=== PATIENT | female | born 1945 | race Two or more races ===

== ENCOUNTER 2024-06-17 11:03 | Inpatient (IN) | payer OTHER ==
[~2024-06-17] VITALS: Ht 160 cm; Wt 82.8 kg
[2024-06-17 11:44] LABS: Hemoglobin 7.7 g/dL (12.2-16.2)
[2024-06-17 11:46] LABS: Hematocrit 26.4 % (36.0-46.0); Mean Corpuscular Hemoglobin 19.3 pg (28.0-32.0); Mean Corpuscular Hgb Conc. 29.2 g/dL (32.0-36.0); Mean Corpuscular Volume 66.2 fL (80.0-100.0); Platelet Count (auto) 400 10^3/uL (140-450); Red Blood Cells 3.99 10^6/uL (4.0-5.20)
[2024-06-17 11:48] LABS: Red Cell Distribution Width 20.3 % (11.8-14.3)
[2024-06-17 11:49] LABS: White Blood Cell 35.2 10^3/uL (4.4-10.8)
[2024-06-17 11:50] LABS: Basophils % (manual) 0 (0.0-2.0); Blast Cells 0; Eosinophils % (manual) 0 (0-7); Metamyelocytes % 0; Monocytes % (manual) 0 (0-12); Myelocytes % 0; Promyelocytes % 0; Reactive Lymphocytes 0
[2024-06-17] MEDS: ASPirin 81 mg TAB PO ONE (11:50)
[2024-06-17 11:53] LABS: Alanine Aminotransferase 25 U/L (7-40); Albumin 3.3 g/dL (3.2-4.8); Alkaline Phosphatase 225 U/L (46-116); Anion Gap 18 (5-15); Aspartate Aminotransferase 21 U/L (13-40); Blood Urea Nitrogen 76 mg/dL (9-23); Calcium 8.4 mg/dL (8.7-10.4); Carbon Dioxide 14 mmol/L (20-31); Chloride 96 mmol/L (98-107); Glucose 302 mg/dL (74-106); Potassium 2.8 mmol/L (3.5-5.1); Sodium 128 mmol/L (136-145)
[2024-06-17 11:54] LABS: Bilirubin, Total 0.2 mg/dL (0.2-1.0); Total Protein 5.9 g/dL (5.7-8.2)
[2024-06-17] MEDS: SODIUM CHLORIDE 0.9% 500 ML IV ONE (11:58)
[2024-06-17] MEDS: SODIUM CHLORIDE 0.9% 1,000 ML IV ONE (12:16)
[2024-06-17] MEDS: POTASSIUM CHL 20MEQ/100ML 100 ML IV ONE (12:24)
[2024-06-17 12:53] LABS: COVID19 ANTIGEN SOFIA FIA NEGATIVE (NEGATIVE)
[2024-06-17 12:55] LABS: Anisocytosis Slight; Band Neutrophils % (manual) 8; Hypochromia Marked; Lymphocytes % (manual) 1 (10.0-50.0); Platelet Estimate Adequate
[2024-06-17 12:57] LABS: Ovalocytes FEW
[2024-06-17] MEDS: NOREPINEPHRINE 8 MG/250ML KIT 250 ML IV SCH (13:50)
[2024-06-17] MEDS: cefTRIAXone 1GM/50ML D5W 50 ML IV ONE (14:31)
[2024-06-17] MEDS: VANCOMYCIN 1GM/200ML PREMIX 250 ML IV ONE (14:54)
[2024-06-17] MEDS ORDERED: VANCOMYCIN PER PHARMACY 0 MG IV SCH ×2 (15:30→15:45)
[2024-06-17] MEDS ORDERED: CEFEPIME 1GM/ 50ML 50 ML IV SCH (15:30)
[2024-06-17] MEDS ORDERED: SODIUM CHLORIDE 0.9% 1,000 ML IV SCH (15:30)
[2024-06-17] MEDS ORDERED: POTASSIUM CHL 20MEQ/100ML 100 ML IV SCH (15:30)
[2024-06-17] MEDS ORDERED: MORPHINE SULFATE INJ 2 MG/ml SYRG IV PRN ×2 (15:45→16:00)
[2024-06-17] MEDS ORDERED: ONDANSETRON HCL 4 MG/2 ML VIAL IV PRN ×2 (15:45→16:00)
[2024-06-17] MEDS ORDERED: DEXTROSE (50%) 50ML SYRG IV PRN ×2 (15:45→16:00)
[2024-06-17] MEDS ORDERED: HYDROcodone-ACET 5/325MG TAB PO PRN (15:45)
[2024-06-17] MEDS ORDERED: DOCUSATE SOD 100 MG CAP PO PRN ×2 (15:45→16:00)
[2024-06-17] MEDS ORDERED: ACETAMINOPHEN 325 MG TAB PO PRN ×2 (15:45→16:00)
[2024-06-17] MEDS ORDERED: NITROGLYCERIN 0.4 MG SL TAB SL PRN ×2 (15:45→16:00)
[2024-06-17] MEDS ORDERED: InsuLIN REG 1unit/0.01ml Soln (100units/ml) SC SCH (17:00)
[2024-06-17] MEDS ORDERED: ACCU-CHEK COMFORT CURVE STRIP VI SCH (17:00)
[2024-06-17 17:15] VITALS: BP 124/46; PULSE 63; RESP 14; TEMP 94.6
[2024-06-17 17:33] VITALS: BP 139/60; PULSE 60; RESP 13; TEMP 94.9
[2024-06-17] MEDS: SODIUM CHLORIDE 0.9% 1,000 ML IV SCH (17:43)
[2024-06-17] MEDS: POTASSIUM CHL 20MEQ/100ML 100 ML IV SCH (17:43)
[2024-06-17 17:56] LABS: Urine Bacteria MANY /hpf (None Seen); Urine Blood 2+ /uL (Negative); Urine Budding Yeast FEW /hpf (None Seen); Urine Clarity Turbid (Clear); Urine Color Colorless (Yellow); Urine Hyaline Cast FEW /lpf (0 - 2); Urine Protein, UAD 1+ (Negative); Urine Urobilinogen 3 mg/dL (Negative); Urine WBC 72 /hpf (0 - 5); Urine pH 5.5 (5.0-9.0)
[2024-06-17] MEDS: ACCU-CHEK COMFORT CURVE STRIP VI SCH (18:40)
[2024-06-17] MEDS: InsuLIN REG 1unit/0.01ml Soln (100units/ml) SC SCH (18:50)
[2024-06-17 19:30] VITALS: RESP 17; O2SAT 100
[2024-06-17 20:30] VITALS: BP 119/50; PULSE 80; RESP 20; TEMP 98.6
[2024-06-17 20:45] VITALS: BP 128/55; PULSE 83; RESP 20; TEMP 98.3
[2024-06-17] MEDS: CEFEPIME 1GM/ 50ML 50 ML IV SCH (22:28)
[2024-06-18 07:31] LABS: Hemoglobin 8.6 g/dL (12.2-16.2); White Blood Cell 26.4 10^3/uL (4.4-10.8)
[2024-06-18 07:32] LABS: Hematocrit 27.5 % (36.0-46.0); Mean Corpuscular Hemoglobin 22.6 pg (28.0-32.0); Mean Corpuscular Hgb Conc. 31.2 g/dL (32.0-36.0); Mean Corpuscular Volume 72.4 fL (80.0-100.0); Platelet Count (auto) 335 10^3/uL (140-450); Red Blood Cells 3.79 10^6/uL (4.0-5.20)
[2024-06-18 07:36] LABS: Band Neutrophils % (manual) 0; Basophils % (manual) 0 (0.0-2.0); Blast Cells 0; Metamyelocytes % 0; Myelocytes % 0; Promyelocytes % 0; Reactive Lymphocytes 0
[2024-06-18 08:15] VITALS: PULSE 73; RESP 12; O2SAT 99
[2024-06-18 08:36] LABS: Potassium 3.3 mmol/L (3.5-5.1)
[2024-06-18 08:37] LABS: Anion Gap 12 (5-15); Carbon Dioxide 14 mmol/L (20-31)
[2024-06-18 08:38] LABS: Calcium 7.9 mg/dL (8.7-10.4)
[2024-06-18 08:43] LABS: BUN/Creatinine Ratio 16.8 (10.0-20.0); Blood Urea Nitrogen 57 mg/dL (9-23); Chloride 108 mmol/L (98-107); Glucose 101 mg/dL (74-106); Sodium 134 mmol/L (136-145)
[2024-06-18] MEDS: POTASSIUM CHL 20MEQ/100ML 100 ML IV SCH ×2 (09:15→16:40)
[2024-06-18 11:25] LABS: Eosinophils % (manual) 1 (0-7); Lymphocytes % (manual) 3 (10.0-50.0); Monocytes % (manual) 1 (0-12)
[2024-06-18 11:26] LABS: Platelet Estimate Adequate
[2024-06-18 12:47] LABS: Urine Bacteria FEW /hpf (None Seen); Urine Blood 3+ /uL (Negative); Urine Clarity Ex.Turbid (Clear); Urine Color Light-Brown (Yellow); Urine Hyaline Cast MOD /lpf (0 - 2); Urine Mucus FEW (None Seen); Urine Protein, UAD 1+ (Negative); Urine Specific Gravity 1.005 (1.001-1.035); Urine Urobilinogen Normal (Negative); Urine WBC 476 /hpf (0 - 5); Urine WBC Clumps PRESENT /hpf (None Seen); Urine pH 5.5 (5.0-9.0)
[2024-06-18] MEDS: SODIUM BICARB 50mEq/50ml Vial 100 ML in SOD CHL 0.45% 1,000 ML IV SCH (12:52)
[2024-06-18] MEDS: VANCOMYCIN 500 MG in D5W 5% 100 ML IV ONE (12:52)
[2024-06-18 12:57] LABS: Protein, Urine 65.7 mg/dL (1-14)
[2024-06-18 12:58] LABS: Uric Acid 13.9 mg/dL (3.1-7.8)
[2024-06-18 12:59] LABS: Magnesium 1.7 mg/dL (1.6-2.6)
[2024-06-18 12:59] LABS: Creatinine, Urine 32.05 mg/dL (30.0-125.0); Urine Protein/Creatinine Ratio 2.05
[2024-06-18 13:00] LABS: Creatinine, Urine 30.23 mg/dL (30.0-125.0)
[2024-06-18 13:01] LABS: Phosphorus 4.2 mg/dL (2.4-5.1)
[2024-06-18 14:14] LABS: Hepatitis B Surface Antigen Negative (Negative)
[2024-06-18 14:35] LABS: Hepatitis C Antibody Negative (Negative)
[2024-06-18] MEDS: CHOLECALCIFEROL (VITD3) 1,000UNIT=25mCg TAB PO SCH (16:35)
[2024-06-18] MEDS: ASPirin 81 mg TAB PO SCH (16:35)
[2024-06-18] MEDS: ATORVASTATIN 20 MG TAB PO SCH (16:35)
[2024-06-18] MEDS: amLODIPine BESYLATE 5 MG TAB PO SCH (18:15)
[2024-06-18 21:48] VITALS: BP 136/55; PULSE 74; RESP 20; TEMP 96.9; O2SAT 93
[2024-06-19] VITALS (7 sets, daily range): BP systolic 99–132; BP diastolic 39–102; PULSE 65–78; RESP 18–20; TEMP 97.4–98; O2SAT 98–99
[2024-06-19] MEDS: HYDROcodone-ACET 5/325MG TAB PO PRN (02:30)
[2024-06-19 06:59] LABS: Chloride 108 mmol/L (98-107); Potassium 3.5 mmol/L (3.5-5.1); Sodium 136 mmol/L (136-145)
[2024-06-19 07:00] LABS: Anion Gap 12 (5-15); Carbon Dioxide 16 mmol/L (20-31)
[2024-06-19 07:01] LABS: Calcium 7.6 mg/dL (8.7-10.4)
[2024-06-19 07:06] LABS: BUN/Creatinine Ratio 17.8 (10.0-20.0); Blood Urea Nitrogen 61 mg/dL (9-23); Glucose 179 mg/dL (74-106)
[2024-06-19 09:25] LABS: Eosinophils # (auto) 0.1 10 ^3/uL (0-0.8); Eosinophils % (auto) 0.3 % (0.0-7.0); Lymphocytes # (auto) 0.5 10 ^3/uL (0.4-5.4); Mean Corpuscular Volume 72.1 fL (80.0-100.0); Neutrophils # (auto) 17.9 10 ^3/uL (1.6-8.6); White Blood Cell 19.3 10^3/uL (4.4-10.8)
[2024-06-19 09:27] LABS: Basophils # (auto) 0.1 10 ^3/uL (0-0.2); Basophils % (auto) 0.3 % (0.0-2.0); Hematocrit 25.8 % (36.0-46.0); Lymphocytes % (auto) 2.7 % (10.0-50.0); Mean Corpuscular Hemoglobin 22.3 pg (28.0-32.0); Mean Corpuscular Hgb Conc. 30.9 g/dL (32.0-36.0); Monocytes # (auto) 0.7 10 ^3/uL (0-1.3); Monocytes % (auto) 3.9 % (0.0-12.0); Neutrophils % (auto) 92.8 % (37.0-80.0); Platelet Count (auto) 301 10^3/uL (140-450); Red Blood Cells 3.58 10^6/uL (4.0-5.20); Red Cell Distribution Width 25.5 % (11.8-14.3)
[2024-06-19] MEDS: ENOXAPARIN SOD 80 MG/0.8ML SYRINGE SC SCH (10:36)
[2024-06-19] MEDS: METOPROLOL TARTRATE 25 MG TAB PO SCH (10:45)
[2024-06-19] MEDS: PANTOPRAZOLE 40 MG TAB PO SCH (10:56)
[2024-06-19 12:08] LABS: Platelet Estimate Adequate
[2024-06-19] MEDS ORDERED: SODI650T PO (12:12)
[2024-06-19] MEDS ORDERED: ERGO1CAP23 PO (12:12)
[2024-06-19] MEDS ORDERED: LEVO250T58 PO (12:12)
[2024-06-19 13:09] LABS: % Iron Saturation 8.7 % (15-50)
[2024-06-19] MEDS ORDERED: ASCO500T11 PO (13:29)
[2024-06-19] MEDS ORDERED: AML5T PO (13:29)
[2024-06-19] MEDS ORDERED: DOCU-265 PO (13:29)
[2024-06-19] MEDS ORDERED: FER325T PO (13:29)
[2024-06-19] MEDS ORDERED: MET25T PO (13:29)
[2024-06-19] MEDS ORDERED: DOCUSATE SOD 100 MG CAP PO PRN (13:30)
[2024-06-19] MEDS: levoFLOXacin 250MG 50 ML IV ONE (13:52)
[2024-06-19] MEDS: FERROUS SULFATE 325mg EC TAB PO SCH (18:39)
[2024-06-20] MEDS ORDERED: ASCORBIC ACID 500 MG TAB PO SCH (10:00)
== END 2024-06-19 22:35 | disposition home health service (06) | DRG 871 ==
LOC: ER 11:03 → EDBD 11:03 → TELE 15:42 → ER 15:42 → TELE-WESTW 06-18 20:54
PROVIDERS: ADMIT Internal Medicine; ATTEND Internal Medicine
PROC: 30233N1 Transfusion of Nonautologous Red Blood Cells into Peripheral Vein, Percutaneous Approach (ICD-10-PCS; principal; 2024-06-17)
DX: A41.51 Sepsis due to Escherichia coli [E. coli] (principal); R65.21 Severe sepsis with septic shock; N17.9 Acute kidney failure, unspecified; E87.20 Acidosis, unspecified; F03.A3 Unspecified dementia, mild, with mood disturbance; N39.0 Urinary tract infection, site not specified; E87.1 Hypo-osmolality and hyponatremia; K52.9 Noninfective gastroenteritis and colitis, unspecified; Z20.822 Contact with and (suspected) exposure to COVID-19; E86.0 Dehydration; E87.6 Hypokalemia; D50.9 Iron deficiency anemia, unspecified; E66.9 Obesity, unspecified; I12.9 Hypertensive chronic kidney disease with stage 1 through stage 4 chronic kidney disease, or unspecified chronic kidney disease; I48.91 Unspecified atrial fibrillation; E87.8 Other disorders of electrolyte and fluid balance, not elsewhere classified; K21.9 Gastro-esophageal reflux disease without esophagitis; I44.7 Left bundle-branch block, unspecified; E78.5 Hyperlipidemia, unspecified; E11.649 Type 2 diabetes mellitus with hypoglycemia without coma; E55.9 Vitamin D deficiency, unspecified; D63.1 Anemia in chronic kidney disease; E11.22 Type 2 diabetes mellitus with diabetic chronic kidney disease; F32.A Depression, unspecified; N18.9 Chronic kidney disease, unspecified; Z90.49 Acquired absence of other specified parts of digestive tract; Z95.0 Presence of cardiac pacemaker; Z90.710 Acquired absence of both cervix and uterus; Z68.32 Body mass index [BMI] 32.0-32.9, adult; Z79.4 Long term (current) use of insulin
CPT/HCPCS: 36415; 36430; 71045; 74176; 76705; 76775; 80048; 80053; 80202; 81001; 82270; 82306; 82565; 82570; 82962; 83036; 83540; 83550; 83605; 83690; 83735; 83880; 83935; 83970; 84075; 84100; 84132; 84156; 84300; 84484; 84550; 85007; 85025; 85027; 86803; 86850; 86870; 86900; 86901; 86902; 86922; 87040; 87086; 87088; 87186; 87340; 87426; 93005; 93306; 96361; 96365; 96368; 99291; G0378; J1815; J3480; J7060